=== PATIENT | female | born 2000 | race Caucasian/White ===

== ENCOUNTER 2019-02-13 23:15 | Emergency (ER) | payer SELFPAY, MEDICAID | END 2019-02-14 02:00 | disposition left against medical advice (07) | LOC: FTE 23:15 | DX: Z53.21 Procedure and treatment not carried out due to patient leaving prior to being seen by health care provider (principal) ==

== ENCOUNTER 2019-02-16 12:33 | Emergency (ER) | payer MEDICAID | END 2019-02-16 13:58 | disposition home or self-care (01) | LOC: FTE 12:33 | DX: R20.0 Anesthesia of skin (principal) | CPT/HCPCS: 99283; Z7502 ==